=== PATIENT | male | born 1935 | race Hispanic/Latino ===

== ENCOUNTER → 2020-06-03 | Outpatient (CLI) | payer OTHER, MEDICARE | END | disposition home or self-care (01) | LOC: RAH 10:50 | PROVIDERS: ATTEND Internal Medicine Gastroenterology | DX: R13.12 Dysphagia, oropharyngeal phase (principal); R63.3 Feeding difficulties; Z86.718 Personal history of other venous thrombosis and embolism | CPT/HCPCS: 74230; 92611 ==